=== PATIENT | male | born 1925 | race Caucasian/White ===

== ENCOUNTER 2016-09-08 14:58 | Emergency (ER) | payer MEDICARE ==
[~2016-09-08] VITALS: Ht 182.9 cm; Wt 113.6 kg
[2016-09-08 14:58] VITALS: BP 171/117
[~2016-09-08 14:58] MED LIST: DOPamine DRIP 400,000 MCG/250 ML BAG IV ONE; EPINEPHrine 0.1 MG/ML (1:10,000) 10 ML SYRINGE ONE; NS 1000 ML IV BAG ONE; SODIUM BICARBONATE 8.4% 50 MEQ/50 ML SYRINGE ONE; SODIUM CHLORIDE FLUSH 10 ML SYR ONE
[2016-09-08 15:14] LABS: MEAN CORPUSCULAR HEMOGLOBIN 29.5 PG (26.0-34.0); MEAN CORPUSCULAR HGB CONC 32.1 g/dL (31.0-37.0); MEAN CORPUSCULAR VOLUME 92 FL (80-100); MEAN PLATELET VOLUME 10.3 FL (6.0-9.5); PLATELET COUNT 134 10^3uL (150-450)
[2016-09-08] MEDS ORDERED: DOPamine DRIP 250 ML IV ONE (15:19)
[2016-09-08 15:23] LABS: ALBUMIN 3.5 g/dL (3.4-5.0); ANION GAP 22.4 MEQ/L (3-15); CALCULATED IONIZED CALCIUM 3.9 mg/dL (3.8-4.6); TOTAL PROTEIN 6.4 g/dL (6.4-8.5)
[2016-09-08 15:42] LABS: BAND NEUTROPHILS % 7 % (0-6); EOSINOPHILS % 0 % (0-4); LYMPHOCYTES # 1.4 #; MONOCYTES # 0.5 #; MONOCYTES % 4 % (3-11); RBC MORPH NORMAL (NORMAL); SEGMENTED NEUTROPHILS % 75 % (51-67); TOTAL CELLS COUNTED 100
--- NOTE | 2016-09-08 16:37 | NUR ---
pt arrival at 1457 - darlin on and IO left knee, last epi given at 1456 pt bagged and intubated with size 7 tube and 23 at the teeth, 6 epi's given by ems NS in IO, abrasion noted to left elbow, tegaderm placed over area 1459 - pressure bag placed on NS 1501 - pulses present, darlin off 1502 - blood gas done by R.T., chest x-ray done at this time, incontinent of urine upon arrival vs 94%, 180 pulse, b/p 170/117 1504 - abdominal hernia noted, ABG to right side by R.T., lab drawn from left side, CO2 49, 130 hr, 100% 1506 - DON talks with family 1508 - carotid and radial pulses present 1510 - ekg to dr. melgar, x-ray sets up for chest film 1511 - ventilator attached by R.T. - pulse 119, 100% on ventilator, b/p 121/53 1514 - pts watch given to 1516 - IV attempt x 2 by ems (yonny), 20g, R wrist 1520 - mace placed 16F to dependent drainage 1522 - B/p 54/27, 83 pulse 1528 - dopamine 23.4 ml an hr started to RAC 1530 - one amp EPI given in IO, flushed with 10cc 1531 - Bicarb 2 amps given and flulsed with 10 cc in IO 1533 - no pulse, continue CPR with darlin attached, 65 pulse, 98% ambu bag 1534 - pause for pulse, no pulse, restart CPR and give epi one amp at IO site 1536 - IV TKO to IO site, pulse present at femoral and caratid, pulse at 121 and 100% ventilator
--- NOTE | 2016-09-08 18:04 | NUR ---
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
[2016-09-08 18:38] LABS: ABG PCO2 56 mmHg (35-45); ABG PH 7.18 (7.35-7.45); ABG PO2 91 mmHg (80-105)
[2016-09-08 18:39] LABS: ABG OXYGEN SATURATION 94 % (95-98)
== END 2016-09-08 16:05 | disposition short-term general hospital (02) ==
LOC: ED 15:03
DX: I46.9 Cardiac arrest, cause unspecified (principal)
CPT/HCPCS: 36415; 71010; 80053; 82803; 83605; 83986; 84484; 85025; 93005; 99285; J0171; J1265; J7030; 93010; 99291

== ENCOUNTER → 2016-09-08 | Outpatient (CLI) | payer MEDICARE | LOC: EMS 14:40 | PROVIDERS: ATTEND Emergency Medicine | DX: I46.9 Cardiac arrest, cause unspecified (principal) ==